=== PATIENT | male | born 1960 | race Caucasian/White ===

== ENCOUNTER 2024-09-15 14:04 | Emergency (ER) | payer SELFPAY ==
[2024-09-15 14:10] VITALS: TEMP 98.3; BMI 23.7
[2024-09-15] MEDS ORDERED: FOLIC ACID INJECTION - 1 MG, THIAMINE HCL 100 MG, MULTIVIT INJECTION ADULT 10 ML in SOD... IVPB ONE (14:38)
[2024-09-15] MEDS ORDERED: THIAMINE HCL 200 MG/2 ML VIAL ONE (14:52)
[2024-09-15] MEDS ORDERED: ACETAMINOPHEN INJECTION 100 ML ONE (14:52)
[2024-09-15 14:57] LABS: ABSOLUTE IMMATURE GRANULOCYTES 0.04 x10^3/uL (0.0-0.031); BASOPHILS # 0.08 x10^3/uL (0.01-0.08); EOSINOPHIL % 1.9 % (0.8-7.0); EOSINOPHILS # 0.13 x10^3/uL (0.04-0.54); HEMATOCRIT 45.4 % (40.1-51.0); HEMOGLOBIN 15.1 g/dL (13.7-17.5); MCHC 33.3 g/dl (32.3-36.5); MEAN CELL VOLUME 86.8 fl (79.0-92.2); MEAN PLT VOLUME 10.6 fl (9.4-12.4); MONOCYTE # 0.82 x10^3/uL (0.30-0.82); MONOCYTE % 11.8 % (5.3-12.2); PLATELET COUNT 195 x10^3/uL (163-337)
[2024-09-15] MEDS: ACETAMINOPHEN 1000 MG/100 ML BAG IVPB ONE (15:04)
[2024-09-15] MEDS: LACTATED RINGERS SOLUTION 1000 ML INFUS.BAG IV ONE (15:04)
[2024-09-15 15:05] LABS: INR 1.04 (0.83-1.09); PROTHROMBIN TIME (PATIENT) 11.4 SEC (9.7-13.0)
[2024-09-15 15:07] LABS: ACTIVATED PTT 27.8 SECONDS (25.2-36.5)
[2024-09-15 15:19] LABS: CHLORIDE 108 mmol/L (98-107); POTASSIUM 4.2 mmol/L (3.5-5.1); SODIUM 139 mmol/L (136-145)
[2024-09-15 15:21] LABS: ANION GAP 7 mmol/L (4-13); BLOOD UREA NITROGEN 16.7 mg/dL (7-18); CALCIUM 9.7 mg/dL (8.5-10.1); CO2 24 mmol/L (21-32)
[2024-09-15 15:22] LABS: ALBUMIN 3.8 g/dl (3.4-5.0); GLUCOSE,RANDOM 113 mg/dL (74-106); MAGNESIUM 2.3 mg/dL (1.8-2.4)
[2024-09-15] MEDS: THIAMINE HCL 200 MG/2 ML VIAL IVPB ONE (15:23)
[2024-09-15 15:24] LABS: CREATININE 0.8 mg/dL (0.55-1.3); SGPT/ALT 37 U/L (13-61)
[2024-09-15 15:25] LABS: PHOSPHOROUS 3.7 mg/dL (2.5-4.9); SGOT/AST 45 U/L (15-37)
[2024-09-15 15:26] LABS: BILIRUBIN,TOTAL 0.4 mg/dL (0.2-1); TOT PROT 7.4 g/dl (6.4-8.2)
[2024-09-15 15:27] LABS: ALK PHOS 87 U/L (45-117)
[2024-09-15] MEDS: levETIRAcetam 500 MG TABLET (FP) PO ONE (16:30)
[2024-09-15] MEDS ORDERED: levETIRAcetam 500 MG TABLET (FP) PO ONE (16:41)
[2024-09-15] MEDS ORDERED: HEPARIN NA (PORCINE) 5,000 UNITS/ML 1ML VIAL ONE (17:35)
[2024-09-15] MEDS: HEPARIN INFUSION - 25,000 UNITS/500 ML INFUS.BAG IVPB SCH (17:51)
[2024-09-15] MEDS: HEPARIN NA (PORCINE) 5,000 UNITS/ML 1ML VIAL IVPUSH ONE (17:51)
[2024-09-15] MEDS ORDERED: ASPIRIN 81 MG CHEWABLE TABLETS ONE ×2 (17:54→17:56)
[2024-09-15] MEDS: ASPIRIN 81 MG CHEWABLE TABLETS PO ONE (17:57)
[2024-09-15 19:42] LABS: PH,URINE 6.5 (5.0-8.0); URINE APPEARANCE CLEAR; URINE BILIRUBIN NEGATIVE (NEGATIVE); URINE COLOR YELLOW; URINE GLUCOSE (UA) NEGATIVE (NEGATIVE); URINE KETONE NEGATIVE (NEGATIVE); URINE LEUK ESTERASE NEGATIVE (NEGATIVE); URINE NITRITE NEGATIVE (NEGATIVE); URINE PROTEIN NEGATIVE (NEGATIVE); URINE UROBILINOGEN 0.2 mg/dL (0.2-1.0)
[2024-09-15 19:59] VITALS: BP 186/99; PULSE 66; RESP 26
== END 2024-09-15 20:15 | disposition short-term general hospital (02) ==
LOC: JER 14:04
PROC: 3E033NZ Introduction of Analgesics, Hypnotics, Sedatives into Peripheral Vein, Percutaneous Approach (ICD-10-PCS; principal; 2024-09-15)
PROC: 3E033GC Introduction of Other Therapeutic Substance into Peripheral Vein, Percutaneous Approach (ICD-10-PCS; 2024-09-15)
DX: I26.99 Other pulmonary embolism without acute cor pulmonale (principal); I77.89 Other specified disorders of arteries and arterioles; R79.89 Other specified abnormal findings of blood chemistry; R51.9 Headache, unspecified; R42 Dizziness and giddiness; R11.2 Nausea with vomiting, unspecified; R53.1 Weakness; R61 Generalized hyperhidrosis; R26.0 Ataxic gait; H55.09 Other forms of nystagmus
CPT/HCPCS: 0241U-QW; 36415; 70450-TC; 70496-TC; 70498-TC; 71045-TC-FY; 71275-TC; 74174-TC; 80053; 81003; 82550; 83735; 83880; 84100; 84484; 85025; 85610; 85730; 86850; 86900; 86901; 87086; 93005; 93010; 99285-25; J1644; Q9967